=== PATIENT | female | born 1995 | race Caucasian/White ===

== ENCOUNTER → 2024-10-15 | Outpatient (CLI) | payer OTHER ==
--- NOTE | 2024-10-15 18:40 | MR ---
EXAMINATION TYPE: MR brain wo con DATE OF EXAM: 10/15/2024 5:24 PM COMPARISON: None. CLINICAL INDICATION: Female, 29 years old with history of R25.1 TREMOR, UNSPECIFIED, lightheadedness, fatigue, headaches, and shakiness for a few months. TECHNIQUE: Multiplanar, multiecho imaging on a 3.0 Anne magnet is performed through the brain. Stud y is performed within 24 hours of arrival to the hospital.Multiplanar, multiecho imaging on a 3.0 Shadia la magnet is performed through the knee. IV Contrast: mL (None, if empty) FINDINGS: The craniovertebral junction is normal. The pituitary is normal. Diffusion-weighted imaging is performed. No abnormal hyperintensity is present to suggest an acute i ntracranial infarct or acute ischemic change. There are scattered punctate areas of hyperintensity on T2 and Inversion Recovery weighted sequences which are non-specific but can be related to microvascular ischemic changes. Ventricles and sulci are appropriate for the patient age. Temporal lobes appear symmetrical IMPRESSION: 1. No acute intracranial process to account for patient's symptoms. [facility], Workstation: [facility], 10/15/2024 6:38 PM
== END | disposition home or self-care (01) ==
LOC: RADMRIMAIN 16:40
PROVIDERS: ATTEND Psychiatry & Neurology Neurology
DX: R25.1 Tremor, unspecified (principal); I67.82 Cerebral ischemia; R53.83 Other fatigue; R42 Dizziness and giddiness
CPT/HCPCS: 70551